=== PATIENT | female | born 1975 | race Caucasian/White ===

== ENCOUNTER → 2021-03-19 10:00 | Outpatient (CLI) | payer BC, SELFPAY ==
--- NOTE | 2021-03-19 10:10 | RAD_ITS ---
STUDY: X-RAY - PELVIS REASON FOR EXAM: Female, 45 years old. PAIN TECHNIQUE: One view of the pelvis was obtained. COMPARISON: None. FINDINGS: There is a non-specific bowel gas pattern. Normal visualized soft tissue structures. Normal bilateral iliac wings, sacroiliac joints and visualized sacrum. Normal visualized bilateral superior and inferior pubic rami. Normal pubic symphysis. Normal ischial tuberosities. Normal visualized right femoral head. Normal right acetabulum. Normal right hip joint. Normal visualized left femoral head. Normal left acetabulum. Normal left hip joint. RAD/Pelvis 1 or 2 Views IMPRESSION: Normal x-ray examination of the pelvis. Electronically Signed: Maikel Song MD at 15:01 EDT , Service support ,
[2021-03-19 11:11] LABS: EXAGEN MAILED SPECIMEN
[2021-03-19 12:09] LABS: Color, Urine Yellow (Yellow); Glucose, Dipstick Normal (Normal); Ketone-Dipstick Negative (Negative); Leukocyte Esterase-Dipstick 500 /ul (Negative); Nitrite-Dipstick Negative (Negative); Occult Blood-Urine Negative /ul (Negative); Protein-Dipstick Negative (Negative); Specific Gravity, Urine 1.015 (1.002-1.030); Urine Bilirubin Dipstick Negative (Negative); Urine Clarity Sl. Cloudy (Clear); Urine Urobilinogen Normal (Normal)
[2021-03-19 12:10] LABS: Absolute Lymphocyte Count 2.89 X10^3/uL (0.83-4.51); Absolute Neutrophil Count 4.9 X10^3/uL (2.0-7.7); Basophil# 0.04 X10^3/uL; Basophil% 0.5 % (0-1); Eosinophil# 0.43 X10^3/uL; Eosinophils% 4.9 % (0-5); Hematocrit 40.7 % (37-47); Hemoglobin 13.3 g/dL (12.0-15.0); Lymphocyte # 2.89 X10^3/ul (0.83-4.51); Mean Corp Hgb Conc 32.7 g/dL (32-36); Mean Corpuscular Hgb 27.8 pg (27.0-32.0); Mean Corpuscular Volume 85.1 fL (81-99); Mean Platelet Vol. 9.5 fl (6.2-12.0); Monocyte# 0.46 X10^3/uL; Monocyte% 5.3 % (0-10); NRBC Flagged by Analyzer 0 % (0-5); Neutrophil # 4.86 X10^3/uL (2.7-7.7); Neutrophil % 55.4 % (47-70); Platelet Count 358 K/mm3 (150-450); RBC Distribution Width CV 13.7 % (11.6-14.6); RBC Distribution Width SD 42.6 fl (35.1-43.9); Red Blood Count 4.78 M/mm3 (4.2-5.4); White Blood Count 8.8 K/mm3 (4.4-11.0)
[2021-03-19 12:12] LABS: International Normalized Ratio 1.1; Prothrombin Time (Protime)PT. 13.5 SECONDS (11.7-14.9)
[2021-03-19 12:13] LABS: Partial Thromboplast Time 27.2 Seconds (24.1-36.2)
[2021-03-19 12:21] LABS: ALB/GLOB Ratio 0.7 RATIO (0.9-2.4); AST(SGOT) 18 U/L (15-37); Alanine Aminotransfer ALT/SGPT 27 U/L (13-56); Albumin, Serum 3.1 g/dL (3.2-5.0); Alkaline Phosphatase 61 U/L (45-117); Anion Gap 9 (5-15); BUN 8 mg/dL (7-18); BUN/Creat Ratio 11.7 RATIO (10-20); Calcium,Total 9.1 mg/dL (8.5-10.1); Chloride 107 mmol/L (98-107); Creatinine, Serum 0.68 mg/dL (0.55-1.02); EST Glomerular Filtration Rate 98 mL/min (>60); Est Glom Filt Rate - Afr Amer 119 mL/min (>60); Globulin 4.6 g/dL (2.2-4.2); Glucose 114 mg/dL (74-106); Potassium 3.8 mmol/L (3.5-5.1); Protein, Total 7.7 g/dL (6.4-8.2); Sodium Level 139 mmol/L (136-145)
[2021-03-19 12:28] LABS: Protein, Urine (Random) 10.7 mg/dL (<11.9); Protein:Creat Ratio 90 mg/g CRE (0-200)
[2021-03-19 12:59] LABS: Hepatitis B Surface Antibody Non-Reactive; Hepatitis B Surface Antigen Non-Reactive (Nonreactive); Hepatitis C Antibody Non-Reactive (Nonreactive)
[2021-03-21 07:07] LABS: Dilute Prothrombin Time (dPT) 36.6 sec (0.0-55.0); Dilute Russell Viper Venom 40.2 sec (0.0-47.0); Hexagonal Phase Phospholipid 1 sec (0-11); PTT-LA 31.6 sec (0.0-51.9); Thrombin Time 16.5 sec (0.0-23.0); dPT Confirm Ratio 1.05 Ratio (0.00-1.40)
[2021-03-21 08:45] LABS: Interpretation Comment: (.)
[2021-03-23 10:05] LABS: Thrombin Time 16.7 sec (0.0-23.0)
== END ==
LOC: MTLAB 10:07
PROVIDERS: Referring Provider Internal Medicine Rheumatology; Visit Provider Internal Medicine Rheumatology
DX: L40.59 Other psoriatic arthropathy (principal); R76.8 Other specified abnormal immunological findings in serum; L40.8 Other psoriasis; M21.41 Flat foot [pes planus] (acquired), right foot; I10 Essential (primary) hypertension; E11.9 Type 2 diabetes mellitus without complications; K21.9 Gastro-esophageal reflux disease without esophagitis
CPT/HCPCS: 36415; 72170; 80053; 81002; 82570; 84156; 85025; 85598; 85610; 85670; 85730; 86706; 86803; 87340